=== PATIENT | male | born 1960 | race Caucasian/White ===

== ENCOUNTER 2023-05-06 11:18 | Emergency (ER) | payer MEDICARE, OTHER, SELFPAY ==
[2023-05-06 11:20] VITALS: BP 162/110; PULSE 88; RESP 16; TEMP 36.1; O2SAT 98; BMI 34.5
--- NOTE | 2023-05-06 11:40 | EKG12_ITS ---
Test Reason : CHEST PAIN Blood Pressure : / mmHG Vent. Rate : 113 BPM Atrial Rate : 000 BPM P-R Int : 000 ms QRS Dur : 094 ms QT Int : 322 ms P-R-T Axes : 000 022 -39 degrees QTc Int : 441 ms Atrial fibrillation with rapid ventricular response Nonspecific T wave abnormality Abnormal ECG Confirmed by JOSÉ MIGUEL BRAMBILA, MERVIN ([id number]), acquisitions editor FEMI LEE ([id number]) on 05/09/2023 11:21:38 AM Referred By: Confirmed By:MERVIN VALDEZ MD
[2023-05-06 12:11] LABS: Hematocrit 54.1 % (40-54); Hemoglobin 17.9 g/dL (13.0-16.5); Mean Corp Hgb Conc 33.1 g/dL (32-36); Mean Corpuscular Hgb 28.2 pg (27.0-32.0); Mean Corpuscular Volume 85.2 fL (80-94); Mean Platelet Vol. 9.5 fl (6.2-12.0); Platelet Count 239 K/mm3 (150-450); RBC Distribution Width CV 16.2 % (11.6-14.6); Red Blood Count 6.35 M/mm3 (4.6-6.2); White Blood Count 6.6 K/mm3 (4.4-11.0)
[2023-05-06] MEDS: Metoprolol Tartrate 5 MG/5 ML Vial IV (12:12)
[2023-05-06 12:29] LABS: Anion Gap 7 (5-15); BUN 12 mg/dL (7-18); BUN/Creat Ratio 9.6 RATIO (10-20); Calcium,Total 8.7 mg/dL (8.5-10.1); Chloride 109 mmol/L (98-107); Creatinine, Serum 1.25 mg/dL (0.70-1.30); EST Glomerular Filtration Rate 62 mL/min (>60); Est Glom Filt Rate - Afr Amer 75 mL/min (>60); Estimated Creatinine Clearance 64.67 ml/min; Glucose 104 mg/dL (74-106); Potassium 4.1 mmol/L (3.5-5.1); Sodium Level 140 mmol/L (136-145); Troponin-I HS 6 pg/mL (3.0-78.0)
--- NOTE | 2023-05-06 13:26 | EDS_ITS ---
HPI History of Present Illness Chief Complaint: Palpitations Detail of Chief Complaint: Chest tightness, palpitations with fast irregular heart rate Informant: patient and spouse/S.O. Onset/Context/Timing Onset: Days (3 days ago) Activity at onset: sudden Timing: Intermittent Quality: Positive for Aching and Pressure Location: Substernal Current Severity: Gone Maximum Severity: Moderate Worsened By: Nothing Relieved By: Nothing Associated Symptoms: Positive for Nausea, Dyspnea, Lightheadedness and Palpitations; Negative for Vomiting, Diaphoresis, Cough, Fever or Acid Reflux Narrative Narrative: Patient is a 63-year-old male with history of coronary bypass surgery 20 years ago who presents with chest tightness, fast irregular heartbeat and dyspnea. He did report one episode lightheadedness. This started last evening. Symptoms been present for greater than 16 hours. He is also complained of irregular fast heartbeat that started 3 days ago. He has a history of paroxysmal atrial fibrillation. Patient states he took an extra dose of flecainide the past 2 nights. He is also on atenolol. He did not increase his dose. He did leave a email with his aquatic habitat biologist Dr. Tommie almazan. He did not get a response. He does have an appointment for July 09. He does endorse swelling of his legs. This is chronic. He denies orthopnea or PND. He states he has no stents. He denies fever, chills night sweats. He denies history of VTE. He denies leg pain. He has no risk factors for VTE. Patient is not on an anticoagulant. He did take an aspirin last evening. Prior Similar Symptoms: Yes (Atrial fibrillation he had dyspnea prior to multivessel bypass surgery) Recent Illness/Hospitalization: No CVD Risk Factors: Negative for Hypertension, Diabetes, Hypercholesterolemia or Family History 1' </=55 PE Risk Factors: Negative for Recent Travel/Surgery, Recent Immobilization, Prior DVT or PE, Cancer or OCP + Smoking + >/=35 TAD Risk Factors: Negative for Marfan's Syndrome, Hypertension or Family History [facility] Medical History Atrial fibrillation Allergy/AdvReac Type Severity Reaction Status Date / Time No Known Allergies Allergy Verified 05/06/23 11:19 Surgical History Total knee replacement status Social History (Updated 05/06/23 @ 13:[address] Moris Jamison MD) household members: spouse Smoking Status: Never smoker substance use type: does not use ROS ROS ED Constitutional Constitutional ED: Denies chills, fever(s), subjective, sweats or weight loss Eyes Eyes: Reports none ENT ENT ED: Denies ear pain, rhinorrhea or sore throat Cardiovascular Cardiovascular: Reports as per HPI; Denies orthopnea or paroxysmal nocturnal dyspnea Respiratory/Chest Respiratory/Chest: Reports dyspnea; Denies cough, dyspnea on exertion, orthopnea or paroxysmal nocturnal dyspnea Gastrointestinal Gastrointestinal: Denies abdominal pain, diarrhea, melena or nausea Genitourinary Genitourinary ED: Denies dysuria, hematuria or urinary frequency Musculoskeletal Musculoskeletal: Denies arthralgias, back pain or myalgias Integumentary Denies rash Neurologic Neurologic: Denies headache(s), paresthesias or weakness Psychiatric Psychiatric: Denies anxiety or depression Endocrine Endocrinology: Denies cold intolerance or heat intolerance Hematologic/Lymphatic Hematologic/Lymphatic: Denies easy bleeding or easy bruising EXAM Physical Exam Const Vital Signs: 05/06/23 11:20 05/06/23 15:11 Temperature 97 F L Temperature Source Temporal Pulse Rate 88 80 Respiratory Rate 16 16 Blood Pressure 162/110 H 134/60 H Blood Pressure Mean 127 84 Pulse Ox 98 99 Oxygen Delivery Method Room Air Room Air Positive well nourished, well developed and obese General Appearance ED: well developed and NAD; Negative for pallor Nutritional Appearance: obese HEENT Reports TM's clear and moist mucous membranes normocephalic and atraumatic Tympanic Membrane ED: Yes TM's clear Eyes PERRL and EOMs intact bilaterally General Eye ED: Negative for pale conjunctiva or scleral icterus Neck no lymphadenopathy, supple and no JVD Chest Wall inspection of chest normal and palpation of chest normal Resp normal respiratory effort and clear to auscultation bilaterally Cardio no murmurs Rate: tachycardic Rhythm: abnormal rhythm irregularly irregular Peripheral Pulses: pulses 2+ throughout GI normal to inspection, nondistended, normoactive bowel sounds, soft to palpation, non-tender, non-distended and no masses; Negative for hepatosplenomegaly Back/Spine no CVA tenderness and no thoracic nor lumbar tenderness Neuro oriented x3, CN's II-XII intact bilaterally and no sensory deficits noted Sensorium / Orientation: awake and alert Psych mental status grossly normal Skin no rashes or lesions noted and no wounds General Skin Exam: Negative for jaundice or pallor MDM MDM MDM Narrative Medical decision making narrative: With history of cardiac disease chest heaviness will obtain troponin. CBC to assess H&H. Electrolyte panel. EKG was obtained and reveals atrial fibrillation with no ischemic changes. Patient was treated with metoprolol in the department. When he was reassessed at 1305 he had a controlled rate but was still in A-fib. I called his aquatic habitat biologist. He is presently in the lab. Message was given to him. He will contact me once he is out of the lab. Since the call has been placed he is converted into a sinus rhythm with a rate of 72 on the monitor. Patient's CHADS2 vascular score is 2. As of 1529 the [facility] cardiology is not called back. Will discharge patient to home. We will have him take aspirin a day. History & Record Review Discussion w/independent historian: Patient and Significant other Additional record(s) reviewed:: Prior outpatient record (Records from [facility]) Lab Data Labs: Laboratory Results - last 24 hr 05/06/23 11:58 WBC 6.6 RBC 6.35 H Hgb 17.9 H Hct 54.1 H MCV 85.2 MCH 28.2 MCHC 33.1 RDW Std Deviation 48.0 H RDW Coeff of Aline 16.2 H Plt Count 239 MPV 9.5 Sodium 140 Potassium 4.1 Chloride 109 H Carbon Dioxide 24.0 Anion Gap 7 BUN 12 Creatinine 1.25 Estim Creat Clear Calc 64.67 Est GFR (MDRD) Af Amer 75 Est GFR (MDRD) Non-Af 62 BUN/Creatinine Ratio 9.6 L Glucose 104 Calcium 8.7 Troponin I High Sens 6 Management Discussion w/another healthcare provider: Tunnel Heading Inspector Discharge Plan Triage Chief Complaint: Palpitations ED Provider: Moris Jamison Dx/Rx/DC Orders Clinical Impression: Chest tightness, Hypertension, Atrial fibrillation with RVR Primary Care Provider: Castro Adam Referrals: Castro Adam MD [Primary Care Provider] - 1 Week Activity Restrictions/Additional Instructions: 1. Contact your aquatic habitat biologist to ask for a sooner appointment. 2. Take a baby aspirin a day. Disposition Disposition: Home, Self Care
[2023-05-06 15:11] VITALS: BP 134/60; PULSE 80; RESP 16; O2SAT 99
[2023-05-06 15:52] VITALS: BP 121/74; PULSE 82; RESP 18; O2SAT 99
== END 2023-05-06 15:54 | disposition home or self-care (01) ==
PROVIDERS: Emergency Provider Emergency Medicine; PCP Family Medicine; Visit Provider Emergency Medicine
DX: I48.0 Paroxysmal atrial fibrillation (principal); R07.89 Other chest pain; I10 Essential (primary) hypertension; Z79.899 Other long term (current) drug therapy; Z96.659 Presence of unspecified artificial knee joint
CPT/HCPCS: 80048; 84484; 85027; 93005; 96374; 99284; A4216

== ENCOUNTER → 2023-07-01 | Outpatient (CLI) | payer MEDICARE, OTHER, SELFPAY ==
[2023-07-01 12:59] LABS: Hematocrit 52.7 % (40-54); Hemoglobin 17.1 g/dL (13.0-16.5)
[2023-07-01 14:53] LABS: ALB/GLOB Ratio 0.9 RATIO (0.9-2.4); AST(SGOT) 23 U/L (15-37); Alanine Aminotransfer ALT/SGPT 25 U/L (16-61); Albumin, Serum 3.7 g/dL (3.2-5.0); Alkaline Phosphatase 72 U/L (45-117); Anion Gap 4 (5-15); BUN 12 mg/dL (7-18); BUN/Creat Ratio 9.9 RATIO (10-20); Calcium,Total 8.8 mg/dL (8.5-10.1); Chloride 109 mmol/L (98-107); Cholesterol 148 mg/dL (200); Creatinine, Serum 1.21 mg/dL (0.70-1.30); EST Glomerular Filtration Rate 64 mL/min (>60); Est Glom Filt Rate - Afr Amer 77 mL/min (>60); Estradiol 27.5 pg/mL; Globulin 3.9 g/dL (2.2-4.2); Glucose 95 mg/dL (74-106); High Density Lipoprotein 36 mg/dL; PSA,Total - Annual Screen 1.89 ng/mL (0.00-4.00); Potassium 4.1 mmol/L (3.5-5.1); Protein, Total 7.6 g/dL (6.4-8.2); Sodium Level 138 mmol/L (136-145); Triglycerides 134 mg/dL; Very Low Density Lipoprotein 27 mg/dL (5-40)
[2023-07-08 14:10] LABS: DHEA Sulfate 58.8 ug/dL (30.9-295.6); Sex Hormone-binding Globulin 42.7 nmol/L (19.3-76.4); Testosterone, % Free 1.79 % (1.50-4.20); Testosterone, Total 1240 ng/dL (264-916)
== END | disposition home or self-care (01) ==
PROVIDERS: PCP Family Medicine; Referring Provider Registered Nurse; Visit Provider Registered Nurse
DX: E78.9 Disorder of lipoprotein metabolism, unspecified (principal); R53.83 Other fatigue; Z12.5 Encounter for screening for malignant neoplasm of prostate; R68.82 Decreased libido; R63.5 Abnormal weight gain; R35.0 Frequency of micturition; R39.16 Straining to void
CPT/HCPCS: 36415; 80053; 80061; 82627; 82670; 84153; 84270; 84402; 84403; 85014; 85018; 82626; G0103

== ENCOUNTER → 2024-04-22 | Outpatient (CLI) | payer MEDICARE, OTHER, SELFPAY ==
[2024-04-22 14:26] LABS: Hemoglobin 17.5 g/dL (13.0-16.5)
[2024-04-22 15:03] LABS: ALB/GLOB Ratio 1.1 RATIO (0.9-2.4); AST(SGOT) 49 U/L (15-37); Alanine Aminotransfer ALT/SGPT 30 U/L (16-61); Albumin, Serum 3.9 g/dL (3.2-5.0); Alkaline Phosphatase 96 U/L (45-117); Anion Gap 9 (5-15); BUN 21 mg/dL (7-18); BUN/Creat Ratio 16.7 RATIO (10-20); Calcium,Total 9.2 mg/dL (8.5-10.1); Chloride 103 mmol/L (98-107); Cholesterol 207 mg/dL (200); Creatinine, Serum 1.26 mg/dL (0.70-1.30); EST Glomerular Filtration Rate 61 mL/min (>60); Est Glom Filt Rate - Afr Amer 74 mL/min (>60); Estradiol 55.1 pg/mL; Globulin 3.5 g/dL (2.2-4.2); Glucose 101 mg/dL (74-106); High Density Lipoprotein 27 mg/dL; Potassium 4.3 mmol/L (3.5-5.1); Protein, Total 7.4 g/dL (6.4-8.2); Sodium Level 136 mmol/L (136-145); Triglycerides 244 mg/dL; Very Low Density Lipoprotein 49 mg/dL (5-40)
[2024-04-30 11:09] LABS: Sex Hormone-binding Globulin 29.9 nmol/L (19.3-76.4); Testosterone, % Free 4.81 % (1.50-4.20); Testosterone, Free 57.86 ng/dL (5.00-21.00); Testosterone, Total 1203 ng/dL (264-916)
== END | disposition home or self-care (01) ==
PROVIDERS: PCP Family Medicine; Referring Provider Registered Nurse; Visit Provider Registered Nurse
DX: E78.9 Disorder of lipoprotein metabolism, unspecified (principal); R53.83 Other fatigue; R68.82 Decreased libido; R35.0 Frequency of micturition
CPT/HCPCS: 36415; 80053; 80061; 82627; 82670; 84270; 84402; 84403; 85014; 85018; 82626

== ENCOUNTER 2024-09-13 11:55 | Emergency (ER) | payer MEDICARE, OTHER, SELFPAY ==
[2024-09-13 11:56] VITALS: BP 168/133; PULSE 111; RESP 20; TEMP 36.8; O2SAT 97; BMI 36.8
[2024-09-13] MEDS: Racepinephrine HCl 0.5 ML VIAL.NEB. INHALATION (12:04)
[2024-09-13 12:05] VITALS: PULSE 92; RESP 16; O2SAT 96
[2024-09-13] MEDS: Epi Pen (EQUIV) 0.3 MG Syringe IM (12:07)
[2024-09-13] MEDS: MethylPREDNISolone 125 MG/2 ML Vial IV (12:07)
[2024-09-13] MEDS: Famotidine 200 MG/20 ML MDV 20 MG in 0.9% Normal Saline (Pres. free 8 ML 300 MG IV (12:07)
[2024-09-13] MEDS: DiphenhydrAMINE 50 MG/ML Syringe 25 MG IV (12:12)
--- NOTE | 2024-09-13 12:28 | EX.ED.DYSGE1 ---
HPI History of Present Illness Chief Complaint: Allergic Reaction Detail of Chief Complaint: Allergic reaction 30 to 45 minutes after taking fourth dose of amoxicillin Informant: patient Onset/Context/Timing Onset: Today Context: Sudden Onset Timing: Continuous Quality: Pruritic red rash, swelling tongue, trouble swallowing, change in voice Location: Generalized Current Severity: Severe Maximum Severity: Severe Worsened by: Amoxicillin Relieved by: Nothing/not applicable Associated Symptoms Associated Symptoms: Generalized allergic reaction with angioedema Narrative Narrative: Patient is six 4-year-old male with history of coronary disease, who presents after taking amoxicillin. This was for Proflex treatment status post dental procedure. He has arthroplasty of his knees. He denies prior allergy to any medication. I was asked to see him immediately which I did. Patient does complain of some shortness of breath as well. He has no history of asthma. Prior similar symptoms: No Recent Illness/Hospitalization: No [facility] Medical History Atrial fibrillation Home Medications ?Medication ?Instructions ?Recorded ?Last Taken ?Type epinephrine 0.3 mg/0.3 mL 0.3 mg (0.3 mL) IM .Once PRN 09/13/24 Unknown Rx injection, auto-injector (EpiPen) anaphylaxis #2 ea Allergy/AdvReac Type Severity Reaction Status Date / Time amoxicillin Allergy Severe Anaphylaxis Verified 09/13/24 12:14 Surgical History Total knee replacement status Social History household members: spouse Smoking Status: Never smoker substance use type: does not use ROS ROS ED Constitutional Constitutional ED: Denies chills, fever(s) or subjective Eyes Eyes: Denies blurry vision or change in vision ENT ENT ED: Denies ear pain, rhinorrhea or sore throat Cardiovascular Cardiovascular: Reports palpitations; Denies chest pain Respiratory/Chest Respiratory/Chest: Reports dyspnea; Denies cough Gastrointestinal Gastrointestinal: Denies abdominal pain, nausea or vomiting Genitourinary Genitourinary ED: Denies dysuria, hematuria or urinary frequency Musculoskeletal Musculoskeletal: Denies arthralgias or myalgias Integumentary Reports rash Neurologic Neurologic: Denies headache(s) or paresthesias Psychiatric Psychiatric: Reports anxiety Hematologic/Lymphatic Hematologic/Lymphatic: Reports systems reviewed and no addt'l complaints, except as documented EXAM Physical Exam Const Vital Signs: 09/13/24 11:56 09/13/24 12:05 09/13/24 12:05 Temperature 98.2 F Temperature Source Oral Pulse Rate 111 H 92 Respiratory Rate 20 H 16 Blood Pressure 168/133 H Blood Pressure Mean 144 Pulse Ox 97 96 Oxygen Delivery Method Room Air Room Air 09/13/24 12:55 09/13/24 13:00 09/13/24 14:00 Temperature Temperature Source Pulse Rate 67 73 68 Respiratory Rate 18 18 18 Blood Pressure 139/63 H 139/63 H 141/76 H Blood Pressure Mean 88 88 97 Pulse Ox 92 94 93 Oxygen Delivery Method Room Air Room Air Room Air Positive well nourished and well developed Constitutional Narrative: Patient appears in distress. He has a blanching generalized erythematous rash. His tongue is swollen. He has dysphonia. There is abnormal respiratory sounds with inspiration and expiration. They are not high-pitched or more rumbling. These are transmitted to the lungs. There is no wheezing noted. General Appearance ED: well developed HEENT Reports moist mucous membranes Negative for trauma or tenderness Eyes PERRL and EOMs intact bilaterally General Eye ED: Negative for pale conjunctiva or scleral icterus Neck no lymphadenopathy, supple and no JVD Neck Narrative: Documented under the constitutional narrative Chest Wall inspection of chest normal and palpation of chest normal Resp normal respiratory effort and clear to auscultation bilaterally Cardio regular rate, S1 normal heart sound, S2 normal heart sound and no murmurs Rhythm: abnormal rhythm irregularly irregular GI normal to inspection, nondistended, normoactive bowel sounds, non-tender, non-distended and hepatosplenomegaly Extremity normal to inspection General Extremety ED: Negative for edema or tenderness General Extremity: Negative for edema Neuro oriented x3 and CN's II-XII intact bilaterally Sensorium / Orientation: alert Skin Skin Narrative: Generalized pruritic blanching erythematous rash. MDM MDM MDM Narrative Medical decision making narrative: Patient with anaphylactic reaction amoxicillin with allergic angioedema. Patient was treated with epinephrine, Benadryl, Pepcid and Solu-Medrol. He also received racemic epinephrine because of the stridor. He was reassessed at 1227. He still has a rash but it is not as intense. His voice has improved. There is still some abnormal sounds with auscultation of the neck. There is no inspiratory expiratory wheezing. The swelling of his tongue has diminished but not resolved. Patient was reassessed at 1328. His rash is resolved. His voice is normal. There is no abnormal oscillatory findings with auscultation of the neck. There is no wheezing. He is hemodynamically stable. His vital signs have improved significantly. Treatment and Re-Evaluation :: Patient was reassessed at 1429. His symptoms have totally resolved. He feels back to baseline. Will discharge with prescription for EpiPen. He was informed no penicillin products. No cephalosporin products. He is to carry the EpiPen with him at all times. Critical Care Time Critical Care Time: Yes Critical care time (excluding procedures): 30-74 minutes (31), Including time spent: (History, physical, documentation, review of prior records, treatment for generalized anaphylactic reaction with allergic angioedema), Discussing w/Patient &/or Family/Plasma Processing Technician (Discussed with patient and importance of not taking penicillin or penicillin like antibiotics i.e. cephalosporin. To carry EpiPen with him at all times.) and Performing Direct Patient Care at Bedside Discharge Plan Triage Chief Complaint: Allergic Reaction ED Provider: Moris Jamison Dx/Rx/DC Orders Clinical Impression: Allergic angioedema, Biphasic stridor, Generalized anaphylaxis Prescriptions: New epinephrine [EpiPen] 0.3 mg/0.3 mL auto-injector 0.3 mg IM .Once PRN (Reason: anaphylaxis) Qty: 2 0RF Rx Instructions: for 2 doses Primary Care Provider: Castro Adam Referrals: Castro Adam MD [Primary Care Provider] - As Needed Activity Restrictions/Additional Instructions: Make sure you tell your dentist before any dental procedure after dental procedure you cannot take any penicillin product or cephalosporin. He will need to treat you with a different antibiotic. Carry EpiPen with you at all times. Print Language: Sinhala Disposition Disposition: Home, Self Care
[2024-09-13 12:55] VITALS: BP 139/63; PULSE 67; RESP 18; O2SAT 92
[2024-09-13 13:00] VITALS: BP 139/63; PULSE 73; RESP 18; O2SAT 94
[2024-09-13 14:00] VITALS: BP 141/76; PULSE 68; RESP 18; O2SAT 93
[2024-09-13 14:51] VITALS: BP 144/79; PULSE 71; RESP 18; TEMP 36.6; O2SAT 94
== END 2024-09-13 14:52 | disposition home or self-care (01) ==
PROVIDERS: Emergency Provider Emergency Medicine; PCP Family Medicine; Visit Provider Emergency Medicine
DX: T88.6XXA Anaphylactic reaction due to adverse effect of correct drug or medicament properly administered, initial encounter (principal); I48.91 Unspecified atrial fibrillation; T36.0X5A Adverse effect of penicillins, initial encounter; I25.10 Atherosclerotic heart disease of native coronary artery without angina pectoris; Z96.653 Presence of artificial knee joint, bilateral; R06.1 Stridor; T78.3XXA Angioneurotic edema, initial encounter